=== PATIENT | female | born 1955 | race Caucasian/White ===

== ENCOUNTER 2016-10-31 10:21 | Outpatient (CLI) | payer OTHER | END 2016-10-31 10:22 | disposition home or self-care (01) | DX: Z12.31 Encounter for screening mammogram for malignant neoplasm of breast (principal); Z85.3 Personal history of malignant neoplasm of breast ==

== ENCOUNTER 2016-12-06 14:34 | Outpatient (CLI) | payer OTHER ==
--- NOTE | 2016-12-08 14:23 | Ultrasound Report ---
TRANSABDOMINAL AND TRANSVAGINAL ULTRASOUND: 12/06/2016 CLINICAL HISTORY: Patient has a history of a thickened endometrial complex on exam from July 2011. COMPARISON: None available. TECHNIQUE: Transabdominal pelvic ultrasound performed for global evaluation. Transvaginal pelvic ultrasound performed for detailed evaluation. Real-time scanning performed and static images obtained. FINDINGS: Uterus measures 8.3 x 3.6 x 4.4 cm for a volume of 68.8. The uterus is retroflexed, retroverted. Endometrial cavity today visually appears normal and has a diameter at the upper limits of normal for postmenopausal female of 8 mm. No enhanced vascular flow is seen within the endometrial cavity. Right ovary is not seen. It most likely is a result of postmenopausal atrophy. Left ovary measures 2.1 x 1.1 x 1.0 cm with a volume of 1.2 cm. IMPRESSION: UTERUS IS RETROVERTED, RETROFLEXED. CENTRAL INTRAUTERINE CAVITY ON TODAY'S EXAM SHOWS NO SIGNIFICANT ABNORMALITY. JOB #: [id number] EXT JOB #: [id number] [facility]
== END 2016-12-06 14:35 | disposition home or self-care (01) ==
LOC: DI 14:34
PROVIDERS: ATTEND Physician Assistant Medical
DX: R93.8 Abnormal findings on diagnostic imaging of other specified body structures (principal)
CPT/HCPCS: 76830; 76856

== ENCOUNTER 2017-07-28 11:40 | Outpatient (CLI) | payer OTHER ==
[2017-07-28 12:31] LABS: BASOPHILS # (AUTO) 0.1 10^3/uL (0.0-0.1); EOSINOPHILS # (AUTO) 0.1 10^3/uL (0.0-0.7); EOSINOPHILS % (AUTO) 1.9 %; HGB - HEMOGLOBIN 14.1 g/dL (12.0-16.0); LYMPHOCYTES # (AUTO) 1.3 10^3/uL (1.5-3.5); LYMPHOCYTES % (AUTO) 18.6 %; MEAN CORPUSCULAR HEMOGLOBIN 30.1 pg (27.0-31.0); MEAN CORPUSCULAR HGB CONC 34.4 g/dL (32.0-36.0); MEAN CORPUSCULAR VOLUME 87.6 fL (81.0-99.0); MEAN PLATELET VOLUME 8.4 fL (7.9-10.8); MONOCYTES # (AUTO) 0.5 10^3/uL (0.0-1.0); MONOCYTES % (AUTO) 6.9 %; NEUTROPHILS % (AUTO) 71.6 %; PLT - PLATELET COUNT 275 10^3/uL (130-450); RED BLOOD COUNT 4.68 10^6/uL (4.20-5.40); RED CELL DISTRIBUTION WIDTH 12.3 % (12.0-15.0)
[2017-07-28 12:36] LABS: ALBUMIN/GLOBULIN RATIO 1.2 (1.0-2.2); BILIRUBIN,TOTAL 0.4 mg/dL (0.2-1.0); CALCIUM 8.6 mg/dL (8.5-10.3); CREATININE 0.6 mg/dL (0.4-1.0); TOTAL PROTEIN 7.3 g/dL (6.7-8.2)
== END 2017-07-28 11:41 | disposition home or self-care (01) ==
LOC: LAB.R 11:40
PROVIDERS: ATTEND Internal Medicine
DX: R10.11 Right upper quadrant pain (principal)
CPT/HCPCS: 80053; 83690; 85025

== ENCOUNTER 2017-08-21 11:23 | Outpatient (CLI) | payer OTHER ==
--- NOTE | 2017-08-21 14:38 | XRAY Report ---
DATE OF SERVICE: 08/21/2017 THREE VIEW RIGHT FOOT: 08/21/2017 CLINICAL INDICATION: Pain in forefoot. FINDINGS: AP, lateral, oblique views of the right foot demonstrate osteoarthritis of the first and second metatarsophalangeal joints. There is no evidence of acute fracture or dislocation. No radiopaque foreign body is seen in the soft tissues. IMPRESSION: OSTEOARTHRITIS. TD: 08/21/2017 14:38
== END 2017-08-21 11:24 | disposition home or self-care (01) ==
LOC: DI 11:23
PROVIDERS: ATTEND Podiatrist
DX: M19.071 Primary osteoarthritis, right ankle and foot (principal)